=== PATIENT | male | born 1965 | race Asian ===

== ENCOUNTER → 2019-02-04 | Outpatient (CLI) | payer OTHER ==
[~2019-02-04] MED LIST: DILTIAZEM 25 MG INJ IV ONE; IOHEXOL 100 ML ONE; LORAZEPAM (2 MG/ML PO SYG) PO PRN; LORAZEPAM 1 MG TAB PO PRN; METOPROLOL (XL) 100 MG TAB PO ONE; METOPROLOL 100 MG TAB ONE; METOPROLOL 5 MG INJ ONE; NITROGLYCERIN AEROSOL (4.9 GM) ONE; NITROGLYCERIN AEROSOL (4.9 GM) SL ONE; SOD CHLORIDE 0.9% 100 ML ONE
[2019-02-04 16:34] VITALS: BP 105/64; PULSE 70; RESP 18
== END | disposition home or self-care (01) ==
LOC: C/S 12:07
PROVIDERS: ATTEND Internal Medicine
DX: I25.10 Atherosclerotic heart disease of native coronary artery without angina pectoris (principal); I10 Essential (primary) hypertension; I73.9 Peripheral vascular disease, unspecified
CPT/HCPCS: 75571; 75574; Q9967; Z7610